=== PATIENT | male | born 1985 | race Two or more races ===

== ENCOUNTER 2024-01-22 11:17 | Emergency (ER) | payer OTHER ==
[~2024-01-22] VITALS: Ht 175.3 cm; Wt 129.7 kg
[2024-01-22] MEDS ORDERED: ZESTRIL20 MG (11:27)
== END 2024-01-22 14:42 | disposition home or self-care (01) ==
LOC: ER 11:19
DX: M79.605 Pain in left leg (principal)

== ENCOUNTER 2024-05-29 05:09 | Emergency (ER) | payer OTHER ==
[~2024-05-29] VITALS: Ht 175.3 cm; Wt 134.3 kg
[~2024-05-29 05:09] MED LIST: ZESTRIL20 MG
[2024-05-29] MEDS ORDERED: HYDROCODONE/CHLORPHEN P-STIREX 5 ML ML PO STA (05:38)
[2024-05-29] MEDS ORDERED: ACETAMINOPHEN 500 MG GEL..CAP PO STA (05:39)
[2024-05-29] MEDS ORDERED: ACETAMINOPHEN 500 MG GEL..CAP PO ONE (05:42)
[2024-05-29 06:13] LABS: HEMATOCRIT 41.7 % (39.0-48.0); HEMOGLOBIN 14.4 g/dL (13-16.00); MEAN CELL VOLUME 83.6 fL (80.0-100.00); MEAN CORPUSCULAR HEMOGLOBIN 28.9 pg (27.00-32.0); MEAN CORPUSCULAR HGB CONC 34.5 g/dl (32.0-36.0); PLATELET COUNT 316 K/uL (150-450); RED BLOOD COUNT 4.99 M/uL (4.00-6.00); RED CELL DISTRIBUTION WIDTH 13.9 % (11.5-14.5)
[2024-05-29] MEDS ORDERED: CEFTRIAXONE SODIUM 1,000 MG VIAL IM STA (07:17)
[2024-05-29] MEDS ORDERED: CEFTRIAXONE SODIUM 1,000 MG VIAL ONE (07:43)
== END 2024-05-29 07:51 | disposition home or self-care (01) ==
LOC: ER 05:12
DX: J06.9 Acute upper respiratory infection, unspecified (principal); G47.30 Sleep apnea, unspecified; Z20.822 Contact with and (suspected) exposure to COVID-19

== ENCOUNTER 2024-06-19 07:10 | Emergency (ER) | payer OTHER ==
[~2024-06-19] VITALS: Ht 175.3 cm; Wt 131.5 kg
[2024-06-19] MEDS ORDERED: DEXAMETHASONE SODIUM PHOSPHATE 4 MG/ML VIAL IM STA (08:27)
[2024-06-19] MEDS ORDERED: DEXAMETHASONE SODIUM PHOSPHATE 4 MG/ML VIAL ONE (08:38)
== END 2024-06-19 08:48 | disposition home or self-care (01) ==
LOC: ER 07:12
DX: T78.49XA Other allergy, initial encounter (principal); X58.XXXA Exposure to other specified factors, initial encounter; I10 Essential (primary) hypertension

== ENCOUNTER 2025-02-13 22:45 | Emergency (ER) | payer OTHER ==
[~2025-02-13] VITALS: Ht 175.3 cm; Wt 141.1 kg
[2025-02-13] MEDS ORDERED: GABAPENTIN600 MG (22:58)
[2025-02-13] MEDS ORDERED: ATORVASTATIN CA10 MG (22:58)
[2025-02-14 01:48] LABS: BASO % 0.7 % (0.1-1.2); EOS # 0.26 (0.04-0.54); EOS % 2.3 % (0.7-7.0); LYMPH # 2.05 (1.18-3.74); LYMPH % 18.1 % (19.3-53.1); MEAN PLATELET VOLUME 9.50 fl (9.4-12.4); MONO # 0.90 (0.24-0.82); MONO % 8.0 % (4.7-12.5); NEUT # 7.99 (1.56-6.13); NEUT % 70.6 % (34.0-71.1); RED CELL DISTRIBUTION WIDTH 12.3 % (11.6-14.4)
[2025-02-14 01:54] LABS: URINE APPEARANCE Cloudy; URINE BILIRRUBIN Negative (NEGATIVE); URINE BLOOD Large; URINE COLOR Yellow; URINE GLUCOSE Negative (NEGATIVE); URINE KETONE Negative (NEGATIVE); URINE LEUKOCYTE Small; URINE NITRATE Negative; URINE UROBILINOGEN 1.0 E.U./dl
[2025-02-14 01:58] LABS: INR 1.04; URINE BACTERIA 665.9 uL (0.0-1933); URINE EPITHELIAL CELLS 5.2 uL (0.0-38.8); URINE RBC 925.7 uL (0.0-20.8); URINE WBC 1156.2 uL (0.0-23.2)
[2025-02-14 02:03] LABS: TYPE CELLS SQUAMOUS; URINE CAST 0.14 uL (0.0-1.40); URINE PROTEIN 100 (NEGATIVE)
[2025-02-14 02:04] LABS: ALT/SGPT 23.0 U/L (12-78); AST/SGOT 10.0 U/L (15-37); BILIRUBIN TOTAL 0.54 mg/dL (0.3-1.2); BUN CREA RATIO 22.0 (7.0-25.0); CREATININE SERUM 0.88 mg/dL (0.70-1.30); GFR 96.41; GLOBULINA 3.8 G/DL (2.4-3.5); GLUCOSE FASTING 126.0 mg/dL (65-100); OSMOLALITY SERUM 279.0 MOSM/KG (275-295)
[2025-02-14] MEDS ORDERED: PHENAZOPYRIDINE HCL 100 MG TABLET PO STA (03:59)
[2025-02-14] MEDS ORDERED: CEFTRIAXONE SODIUM 2,000 MG VIAL IV ONE (04:00)
[2025-02-14] MEDS ORDERED: PYRIDIUM DS200 MG PO (05:29)
[2025-02-14] MEDS ORDERED: LEVOFLOXACIN750 MG PO (05:29)
[2025-02-14] MEDS ORDERED: TAMS0.4C PO (05:29)
== END 2025-02-14 06:05 | disposition home or self-care (01) ==
LOC: ER 22:45
PROVIDERS: Physician Assistant Medical
DX: N39.0 Urinary tract infection, site not specified (principal); N20.0 Calculus of kidney; R31.9 Hematuria, unspecified; I10 Essential (primary) hypertension
CPT/HCPCS: 36415; 74177; Q9965